=== PATIENT | male | born 2005 | race Two or more races ===

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

== ENCOUNTER 2024-09-06 01:01 | Emergency (ER) | payer MEDICAID, OTHER ==
[~2024-09-06] VITALS: Ht 172.7 cm; Wt 79.4 kg
[2024-09-06 01:21] VITALS: BP 138/84; TEMP 98.1
[2024-09-06] MEDS ORDERED: predniSONE 20 MG TABLET ONE (01:21)
[2024-09-06] MEDS: predniSONE 20 MG TABLET PO ONE (01:24)
[2024-09-06 01:38] VITALS: O2SAT 96
[2024-09-06] MEDS: IPRATROPIUM NEB FS 0.5 MG/2.5 ML AMPUL.NEB NEB ONE (01:38)
[2024-09-06] MEDS: ALBUTEROL FS 2.5 MG/3 ML VIAL.NEB NEB ONE (01:38)
[2024-09-06] MEDS ORDERED: ALBUTEROL FS 2.5 MG/3 ML VIAL.NEB ONE (01:41)
[2024-09-06] MEDS ORDERED: IPRATROPIUM NEB FS 0.5 MG/2.5 ML AMPUL.NEB ONE (01:42)
[2024-09-06 01:48] VITALS: O2SAT 99
[2024-09-06 01:59] VITALS: O2SAT 99
[2024-09-06] MEDS ORDERED: ALBU18HF2 INH (02:14)
[2024-09-06] MEDS ORDERED: PRED50TA PO (02:14)
[2024-09-06 02:18] VITALS: O2SAT 100
== END 2024-09-06 02:19 | disposition home or self-care (01) ==
LOC: ER 01:09
DX: J45.901 Unspecified asthma with (acute) exacerbation (principal); Z79.52 Long term (current) use of systemic steroids
CPT/HCPCS: 99285; 94640; J7512